=== PATIENT | male | born 1945 | race Caucasian/White ===

== ENCOUNTER 2019-06-25 12:54 | Inpatient (IN) | payer MEDICARE, OTHER ==
--- NOTE | 2019-06-25 15:45 | ED ---
Abdominal Pain/Male - HPI Summary HPI Summary: The patient is a 73 y/o M presenting to [facility] accompanied by with a chief complaint of diffuse abdominal pain and bloating since 06/21/2019. He reports that when his pain initially began, he saw his PCP who diagnosed him with the stomach bug. The following day, the pain mostly resolved but then returned the next day and has been present since. He endorses decreased appetite and an episode of palpitations which have resolved. He denies any nausea, vomiting, diarrhea, hematochezia, myalgia, arthralgia, cough, sore throat, CP, SOB, or urinary symptoms. Last BM was today. Symptoms currently rated 5/10 in severity. No known liver issues except for hepatitis A as a child. Cardiac hx includes murmur and HLD but is otherwise unremarkable. Nonsmoker, rare EtOH, no substance use. Medications reviewed. Allergies noted. - History of Current Complaint Chief Complaint: EDAbdPain Stated Complaint: ABDOMINAL PAIN PER PT Time Seen by Provider: 06/25/19 15:34 Hx Obtained From: Patient Onset/Duration: Gradual Onset, Lasting Days, Still Present Timing: Constant Severity Initially: Mild Severity Currently: Moderate Pain Intensity: 5 Pain Scale Used: 0-10 Numeric Location: Diffuse Radiates: No Character: Other: - bloating Aggravating Factor(s): Nothing Alleviating Factor(s): Nothing Associated Signs And Symptoms: Positive: Decreased Appetite. Negative: Cough, Chest Pain, Blood in Stool, Urinary Symptoms, Nausea, Vomiting, Diarrhea, Other - myalgia, arthralgia, sore throat, SOB - Allergies/Home Medications Allergies/Adverse Reactions: Allergies Allergy/AdvReac Type Severity Reaction Status Date / Time No Known Allergies Allergy Verified 06/25/19 13:02 Home Medications: Home Medications Ascorbic Acid TAB* [Vitamin C TAB*] 1,000 mg PO DAILY 06/25/19 [History Confirmed 06/25/19] Aspirin EC TAB* [Ecotrin EC Low Dose 81 MG*] 81 mg PO DAILY 06/25/19 [History Confirmed 06/25/19] Atorvastatin* [Lipitor*] 10 mg PO DAILY 06/25/19 [History Confirmed 06/25/19] [place]-3 Fatty Acids (Nf) [Fish Oil (NF)] 1,000 mg PO DAILY 06/25/19 [History Confirmed 06/25/19] Tamsulosin CAP* [Flomax CAP*] 0.4 mg PO DAILY 06/25/19 [History Confirmed ] Vitamin B Complex CAP* [B Complex CAP*] 1 cap PO DAILY 06/25/19 [History Confirmed 06/25/19] buPROPion SR TAB* [Wellbutrin SR TAB*] 150 mg PO DAILY 06/25/19 [History Confirmed 06/25/19] clonazePAM TAB(*) [KlonoPIN TAB(*)] 0.5 mg PO DAILY 06/25/19 [History Confirmed 06/25/19] PMH/Surg Hx/FS Hx/Imm Hx Endocrine/Hematology History: Denies: Hx Diabetes Cardiovascular History: Reports: Hx Hypercholesterolemia, Other Cardiovascular Problems/Disorders - murmur Denies: Hx Hypertension Sensory History: Reports: Hx Contacts or Glasses Opthamlomology History: Reports: Hx Contacts or Glasses - Surgical History Surgical History: None Surgery Procedure, Year, and Place: none Infectious Disease History: No Infectious Disease History: Reports: Hx Hepatitis - A as child Denies: Traveled Outside the [place] in Last 30 Days - Family History Known Family History: Negative: Diabetes - Social History Alcohol Use: Rare Hx Substance Use: No Substance Use Type: Reports: None Hx Tobacco Use: No Smoking Status (MU): Never Smoked Tobacco Review of Systems Negative: Fever Negative: Sore Throat Positive: Palpitations - resolved. Negative: Chest Pain Negative: Shortness Of Breath, Cough Positive: Abdominal Pain - diffuse with bloating, Vomiting, Nausea, Other - decreased appetite; Negative: hematochezia. Negative: Diarrhea Positive: no symptoms reported Negative: Arthralgia, Myalgia All Other Systems Reviewed And Are Negative: Yes Physical Exam - Summary Physical Exam Summary: Constitutional: Well-developed, Well-nourished, Alert. (-) Distressed Skin: Warm, Dry HENT: Normocephalic; Atraumatic Eyes: Conjunctiva normal Neck: Musculoskeletal ROM normal neck. (-) JVD, (-) Stridor, (-) Tracheal deviation Cardio: Rhythm regular, rate normal, Heart sounds normal; Intact distal pulses; The pedal pulses are 2+ and symmetric. Radial pulses are 2+ and symmetric. (-) Murmur Pulmonary/Chest wall: Effort normal. (-) Respiratory distress, (-) Wheezes, (-) Rales Abd: Soft, (-) tenderness, (-) Distension, (-) Guarding, (-) Rebound Musculoskeletal: (-) Edema Lymph: (-) Cervical adenopathy Neuro: Alert, Oriented x3 Psych: Mood and affect Normal Triage Information Reviewed: Yes Vital Signs On Initial Exam: Initial Vitals Temp Pulse Resp BP Pulse Ox 98.1 F 100 15 137/96 96 06/25/19 12:58 06/25/19 12:58 06/25/19 12:58 06/25/19 12:58 06/25/19 12:58 Vital Signs Reviewed: Yes Procedures - Sedation Patient Received Moderate/Deep Sedation with Procedure: No Diagnostics - Vital Signs Vital Signs Temp Pulse Resp BP Pulse Ox 06/25/19 12:58 98.1 F 100 15 137/96 96 - Laboratory Result Diagrams: 06/26/19 06:12 06/26/19 06:12 Lab Statement: Any lab studies that have been ordered have been reviewed, and results considered in the medical decision making process. - CT Abd/Pel CT CT Interpretation Completed By: Radiologist Summary of CT Findings: Impression: 1. Distended small bowel, greatest diameter 5.4 cm the left flank. Bowel is uniformly distended down to the level of the distal ileum with distal and terminal ileum collapsed. This can be seen on axial imaging images 36 and contiguous. There is not a visualized obstructing mass or torsion at this level however and there is also moderate gaseous distension of the colon. Suspect this is severe ileus however correlation with bowel sounds is recommended to help exclude obstruction. 2. Minimal free fluid without free air or abscess. 3. Enlarged heterogeneous and nodular appearing prostate. Question of extrinsic mass effect on the bladder base versus tumor at the bladder base. This imaging report was reviewed by Dr. Pascual. Re-Evaluation - Re-Evaluation [id number] Re-Evaluation Time: 18:50 Comment: Discussed results and plan for admission, patient agreeable Abdominal Pain Male Course/Dx - Course Course Of Treatment: 73 y/o M presenting with worsening diffuse abdominal pain and bloating for the last five days with decreased appetite but o/w asymptomatic for N/V/D, blood in stool, CP, SOB, urinary symptoms. PMHx: hepatitis A as child, heart murmur, HLD. Physical exam reveals distended and firm abdomen with generalized tenderness. IV access obtained. Patient received fluids. Blood work without significant abnormality except for chloride of 99, glucose of 130. Abd/Pel CT reveals distended small bowel without obstructing mass or torsion, although moderate gaseous colonic distension present with suspected severe ileus, minimal free fluid without free air or abscess, and enlarged heterogeneous and nodular appearing prostate with questionable extrinsic mass effect on the bladder base versus tumor at the bladder base. Dr. Collins from the hospitalist services accepts the patient for admission. All results discussed. Patient agreeable with plan. - Diagnoses Provider Diagnoses: Ileus - Provider Notifications Discussed Care Of Patient With: Deepak Collins - hospitalist Time Discussed With Above Provider: 19:15 Instructed by Provider To: Other - I discussed the patients case with Dr. Collins, who accepts the patient for admission. All results discussed. Patient agreeable with plan. Discharge ED - Sign-Out/Discharge Documenting (check all that apply): Patient Departure - Patient accepted for admissino. - Discharge Plan Condition: Stable Disposition: ADMITTED TO [facility] - Billing Disposition and Condition Condition: STABLE Disposition: Admitted to [facility] - Attestation Statements Document Initiated by Gabby: Yes Documenting Scribe: Yolanda Jacobs Provider For Whom Gabby is Documenting (Include Credential): Dr. Gregorio Pascual DO Scribe Attestation: Yolanda Chaidez scribed for Dr. Gregorio Pascual DO on 06/26/19 at 1024. Scribe Documentation Reviewed: Yes Provider Attestation: The documentation as recorded by the Yolanda larsen accurately reflects the service I personally performed and the decisions made by me, Dr. Gregorio Pascual DO Status of Scranyi Document: Viewed
[2019-06-25] MEDS ORDERED: NS 0.9% 1000 ML** 1,000 ML IV ONE (15:56)
[2019-06-25 16:26] LABS: Albumin 4.4 g/dL (3.2-5.2); Albumin/Globulin Ratio 1.5 (1-3); BUN/Creatinine Ratio 18.4 (8-20); EGFR African American 91.2 (>60); EGFR Non-African American 75.4 (>60); Total Bilirubin 0.9 mg/dL (0.2-1.0); Total Protein 7.4 g/dL (6.4-8.9)
[2019-06-25 16:51] LABS: Eosinophil % 0.3 %; Hematocrit 47 % (42-52); Lymphocyte % 12.4 %; Mean Corpuscular HGB Conc 34 g/dL (31-36); Mean Corpuscular Hemoglobin 31 pg (27-31); Mean Corpuscular Volume 92 fL (80-94); Mean Platelet Volume 9.1 fL (7.4-10.4); Platelet Count 208 10^3/uL (150-450); Red Cell Distribution Width 14 % (10-15); White Blood Count 8.1 10^3/uL (3.5-10.8)
[2019-06-25] MEDS ORDERED: Iohexol 300* (CONTRAST) 10 ML SDV IV ONE (17:12)
[2019-06-25] MEDS ORDERED: oxyCODONE/Acetamin 5/325 MG* TAB PO PRN (20:08)
[2019-06-25] MEDS ORDERED: Lidocaine 2% VISCOUS* 15 ML UDC PO ONE (20:28)
[2019-06-25] MEDS ORDERED: Ondansetron INJ* 2 MG/ML VIAL IV PRN (20:54)
[2019-06-25] MEDS: Enoxaparin(*) 40 MG/0.4 ML SYR SUBCUT SCH (23:09)
[2019-06-25] MEDS: Pantoprazole IV* 40 MG IV SCH (23:09)
[2019-06-25] MEDS: NS 0.9% 1000 ML** 1,000 ML IV SCH (23:09)
--- NOTE | 2019-06-26 00:53 | HP ---
History of Present Illness - History of Present Illness Reason for Visit: Abdominal pain/Distension History of Present Illness: 73 yo Male with PMHx significant for Anxiety/Depression, HLD presented to the ED and accompanied with with CC of abdominal pain and distention/bloating X 4 days. Patient was in his present state of good health until 4 days ago when he developed diffuse abdominal pain associated with bloating. He thought it was gas pain and took some antacid without much relief. He went to his PCP who mad a diagnosis of stomach flu. There is associated nausea and dry heave but no vomiting. Pain is diffuse and non colicky. Initially responded to antacid but now noticed increased distention/swelling which made him not to eat. he reported passing gas but this has decreased rather there is increased belching. He denied fever, chest pain, diarrhea, hematochezia. Last BM was today but it was little and non bloody, non mucoid. He admitted remote inguinal hernia repair about 30 years ago. 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 Alcohol: Rare Drugs: None Lives: With Family Domestic Violence: Negative Review of Systems - Measurements Intake and Output: Intake and Output Last 24 Hours 06/23/19 06/24/19 06/25/19 06/26/19 06:59 06:59 06:59 06:59 Intake Total 1000 Balance 1000 Weight 95.254 kg Intake: IV Fluids 1000 - Review of Systems Constitutional Symptoms: Positive: Weakness, Fatigue Negative: Fever, Night Sweats Dermatology: Positive: Normal HEENT: Positive: Normal Eyes: Positive: Normal Thyroid: Positive: Normal Pulmonary: Positive: Normal Cardiology: Positive: Normal Gastroenterology: Positive: Abdominal Pain, Nausea, Anorexia Negative: Diarrhea, Change in Bowel Habits, Haematemesis Genital - Urinary: Positive: Normal Musculoskeletal: Negative: Arthritis, Osteoporosis Endocrinology: Negative: Thyroid Problems, Adrenal Problems, Diabetes Mellitus, Hyperglycemia Hematologic/Lymphatic: Negative: Anemia, Easy Bruising, Use of Anticoagulant Neurology: Positive: Headache Negative: Diplopia, Dizziness Psychiatry: Negative: Anxiety, Depressed Mood Objective Active Medications: Enoxaparin Sodium (Lovenox(*)) 40 mg SUBCUT Q24H [facility] Last Admin: 06/25/19 23:09 Dose: 40 mg Sodium Chloride (Ns 0.9% 1000 Ml) 1,000 mls @ 125 mls/hr IV PER RATE [facility] Last Admin: 06/25/19 23:09 Dose: 125 mls/hr Ondansetron HCl (Zofran Inj*) 4 mg IV Q4H PRN PRN Reason: NAUSEA/VOMITING Oxycodone/Acetaminophen (Percocet 5/325 Tab*) 1 tab PO Q4H PRN PRN Reason: PAIN - MODERATE Pantoprazole Sodium (Protonix Iv*) 40 mg IV Q24H [facility] Last Admin: 06/25/19 23:09 Dose: 40 mg Vital Signs - 8 hr 06/25/19 06/25/19 06/25/19 16:52 17:01 17:52 Temperature Pulse Rate 73 66 68 Respiratory Rate Blood Pressure 163/107 153/97 (mmHg) O2 Sat by Pulse 95 97 96 Oximetry 06/25/19 06/25/19 06/25/19 18:00 18:22 18:52 Temperature Pulse Rate 70 78 82 Respiratory Rate Blood Pressure 179/100 144/98 (mmHg) O2 Sat by Pulse 97 95 97 Oximetry 06/25/19 06/25/19 06/25/19 19:00 19:22 19:52 Temperature Pulse Rate 80 80 87 Respiratory Rate Blood Pressure 154/96 156/102 (mmHg) O2 Sat by Pulse 95 94 94 Oximetry 06/25/19 06/25/19 06/25/19 20:00 20:15 20:22 Temperature Pulse Rate 89 92 98 Respiratory Rate Blood Pressure 156/102 159/126 (mmHg) O2 Sat by Pulse 96 96 95 Oximetry 06/25/19 06/25/19 06/25/19 20:48 20:52 21:00 Temperature Pulse Rate 94 92 88 Respiratory Rate Blood Pressure 118/94 124/90 (mmHg) O2 Sat by Pulse 96 96 93 Oximetry 06/25/19 06/25/19 06/25/19 21:22 21:52 22:00 Temperature Pulse Rate 88 88 89 Respiratory Rate Blood Pressure 121/79 122/87 (mmHg) O2 Sat by Pulse 95 94 93 Oximetry 06/25/19 06/25/19 06/25/19 22:22 22:49 22:55 Temperature 97.9 F 97.8 F Pulse Rate 84 86 89 Respiratory 18 14 Rate Blood Pressure 136/102 136/102 131/89 (mmHg) O2 Sat by Pulse 93 98 96 Oximetry Oxygen Devices in Use Now: None Appearance: Alert, awake and in mild distress. (Abdominal distention) Eyes: No Scleral Icterus Ears/Nose/Mouth/Throat: Clear Oropharnyx Neck: NL Appearance and Movements; NL JVP, Trachea Midline, No Thyroid Enlargement, Masses Respiratory: Symmetrical Chest Expansion and Respiratory Effort, Clear to Auscultation Cardiovascular: NL Sounds; No Murmurs; No JVD, RRR, No Edema Abdominal: No Hepatosplenomegaly, - - Positive bowel sounds all 4 quadrants. Abdominal distension, mildly tender on palpation. Lymphatic: No Cervical Adenopathy Extremities: No Edema, No Clubbing, Cyanosis Skin: No Rash or Ulcers Neurological: Alert and Oriented x 3, NL Muscle Strength and Tone Result Diagrams: 06/25/19 16:02 06/25/19 16:02 Diagnostic Imaging: CT Abdomen: 1 Distended small bowel, greatest diameter 5.4 cm the left flank. Bowel uniformly distended down to the level of the distal ileum with distal and terminal ileum collapsed. There is not a visualized obstructing mass or torsion at this level however and there is also moderate gaseous distension of the colon. Suspect this is severe ileus however correlation with bowel sounds is recommended to help exclude obstruction. 2. Minimal free fluid without free air or abscess. 3. Enlarged heterogeneous and nodular appearing prostate. Question of extrensic mass effect on the bladder base versus tumor at the bladder base. Assess/Plan/Problems-Billing Assessment: 73 yo Male with PMHx significant for Anxiety/Depression, HLD presented with: - Patient Problems (1) Abdominal pain Current Visit: Yes Status: Acute Code(s): R10.9 - UNSPECIFIED ABDOMINAL PAIN SNOMED Code(s): 84880606 Comment: Admit to medicine Pain control Zofran for nausea/vomiting as needed (2) Adynamic ileus Current Visit: Yes Status: Acute Code(s): K56.0 - PARALYTIC ILEUS SNOMED Code(s): 39011300 Comment: Distension probabaly due to ileus. NPO for now to allow for bowel rest. NGT decompression Pain control (3) Dehydration Current Visit: Yes Status: Acute Code(s): E86.0 - DEHYDRATION SNOMED Code( s): 01043113 Comment: IVF NS hydration FU AM labs (4) Anxiety and depression Current Visit: Yes Status: Acute Code(s): F41.9 - ANXIETY DISORDER, UNSPECIFIED; F32.9 - MAJOR DEPRESSIVE DISORDER, SINGLE EPISODE, UNSPECIFIED SNOMED Code(s): 145319775 Comment: c/w home meds. Wellbutrin XR 150 mg daily Klonopin prn (5) HLD (hyperlipidemia) Current Visit: Yes Status: Acute Code(s): E78.5 - HYPERLIPIDEMIA, UNSPECIFIED SNOMED Code(s): 75090222 Comment: Continue Lipitor (6) BPH (benign prostatic hyperplasia) Current Visit: Yes Status: Acute Code(s): N40.0 - BENIGN PROSTATIC HYPERPLASIA WITHOUT LOWER URINRY TRACT SYMP SNOMED Code(s): 441969618 Comment: Continue Flomax 0.4 mg daily (7) Full code status Current Visit: Yes Status: Acute Code(s): Z78.9 - OTHER SPECIFIED HEALTH STATUS SNOMED Code(s): 486845530 (8) DVT prophylaxis Current Visit: Yes Status: Acute Code(s): Z29.9 - ENCOUNTER FOR PROPHYLACTIC MEASURES, UNSPECIFIED SNOMED Code(s): 766094796 Comment: Lovenox
[2019-06-26] MEDS: NS 0.9% 1000 ML** 1,000 ML IV SCH ×3 (05:33→22:31)
[2019-06-26 06:36] LABS: ABS Eosinophils 0.1 10^3/ul (0-0.6); ABS Lymphocytes 0.8 10^3/ul (1.0-4.8); ABS Monocytes 0.8 10^3/ul (0-0.8); ABS Neutrophils 4.7 10^3/ul (1.5-7.7); Eosinophil % 1.2 %; Hematocrit 39 % (42-52); Hemoglobin 13.6 g/dL (14.0-18.0); Lymphocyte % 13.3 %; Mean Corpuscular HGB Conc 35 g/dL (31-36); Mean Corpuscular Hemoglobin 32 pg (27-31); Mean Corpuscular Volume 92 fL (80-94); Mean Platelet Volume 8.7 fL (7.4-10.4); Platelet Count 170 10^3/uL (150-450); Red Blood Count 4.29 10^6 /uL (4.18-5.48); Red Cell Distribution Width 14 % (10-15); White Blood Count 6.4 10^3/uL (3.5-10.8)
[2019-06-26 06:39] LABS: INR 1.16 (0.82-1.09)
[2019-06-26 06:50] LABS: BUN/Creatinine Ratio 17.8 (8-20); Calcium 8.1 mg/dL (8.6-10.3); EGFR African American 82.4 (>60); EGFR Non-African American 68.1 (>60); HDL Cholesterol 31.2 mg/dL; Potassium 3.6 mmol/L (3.5-5.0)
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
[2019-06-26] MEDS ORDERED: Morphine INJ* 2 MG/ML 1 ML SYRINGE (TWO MG - NEW SYRINGE VERSION) IV PRN (10:30)
[2019-06-26] MEDS ORDERED: Ketorolac INJ* 15 MG/ML 1 ML VIAL IV PUSH ONE (17:11)
[2019-06-26] MEDS: Enoxaparin(*) 40 MG/0.4 ML SYR SUBCUT SCH (21:12)
[2019-06-26] MEDS: Pantoprazole IV* 40 MG IV SCH (21:12)
[2019-06-27] MEDS: NS 0.9% 1000 ML** 1,000 ML IV SCH ×2 (07:18→21:10)
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
[2019-06-27] MEDS: Enoxaparin(*) 40 MG/0.4 ML SYR SUBCUT SCH (21:04)
[2019-06-27] MEDS: Pantoprazole IV* 40 MG IV SCH (21:04)
[2019-06-28 05:42] LABS: ABS Eosinophils 0.1 10^3/ul (0-0.6); ABS Lymphocytes 0.8 10^3/ul (1.0-4.8); ABS Monocytes 0.8 10^3/ul (0-0.8); ABS Neutrophils 5.8 10^3/ul (1.5-7.7); Eosinophil % 1.3 %; Hematocrit 39 % (42-52); Hemoglobin 13.4 g/dL (14.0-18.0); Lymphocyte % 10.5 %; Mean Corpuscular HGB Conc 34 g/dL (31-36); Mean Corpuscular Hemoglobin 31 pg (27-31); Mean Corpuscular Volume 91 fL (80-94); Mean Platelet Volume 8.7 fL (7.4-10.4); Platelet Count 172 10^3/uL (150-450); Red Cell Distribution Width 13 % (10-15); White Blood Count 7.5 10^3/uL (3.5-10.8)
[2019-06-28 06:01] LABS: Albumin 3.3 g/dL (3.2-5.2); Albumin/Globulin Ratio 1.3 (1-3); BUN/Creatinine Ratio 21.2 (8-20); Calcium 7.9 mg/dL (8.6-10.3); EGFR African American 107.5 (>60); EGFR Non-African American 88.9 (>60); Globulin 2.5 g/dL (2-4); Potassium 3.9 mmol/L (3.5-5.0); Total Bilirubin 0.8 mg/dL (0.2-1.0); Total Protein 5.8 g/dL (6.4-8.9)
[2019-06-28] MEDS: NS 0.9% 1000 ML** 1,000 ML IV SCH ×2 (08:03→19:06)
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
[2019-06-28] MEDS ORDERED: Phenol 1.4% Spray* 177 ML BTL MT PRN (08:40)
[2019-06-28] MEDS: Enoxaparin(*) 40 MG/0.4 ML SYR SUBCUT SCH (21:07)
[2019-06-28] MEDS: Pantoprazole IV* 40 MG IV SCH (21:08)
[2019-06-28] MEDS ORDERED: Benzocaine/Menthol LOZ* 1 LOZENGE PO PRN (21:13)
[2019-06-29] MEDS: NS 0.9% 1000 ML** 1,000 ML IV SCH ×2 (03:18→12:00)
[2019-06-29 06:21] LABS: ABS Eosinophils 0.1 10^3/ul (0-0.6); ABS Lymphocytes 0.8 10^3/ul (1.0-4.8); ABS Monocytes 0.8 10^3/ul (0-0.8); ABS Neutrophils 4.4 10^3/ul (1.5-7.7); Eosinophil % 1.1 %; Hematocrit 38 % (42-52); Hemoglobin 12.9 g/dL (14.0-18.0); Mean Corpuscular HGB Conc 34 g/dL (31-36); Mean Corpuscular Hemoglobin 31 pg (27-31); Mean Corpuscular Volume 91 fL (80-94); Mean Platelet Volume 8.9 fL (7.4-10.4); Platelet Count 184 10^3/uL (150-450); Red Blood Count 4.14 10^6 /uL (4.18-5.48); Red Cell Distribution Width 13 % (10-15); White Blood Count 6.1 10^3/uL (3.5-10.8)
[2019-06-29 06:41] LABS: Albumin 3.1 g/dL (3.2-5.2); Albumin/Globulin Ratio 1.3 (1-3); BUN/Creatinine Ratio 14.8 (8-20); Calcium 7.8 mg/dL (8.6-10.3); EGFR African American 113.7 (>60); EGFR Non-African American 93.9 (>60); Globulin 2.4 g/dL (2-4); Potassium 3.9 mmol/L (3.5-5.0); Total Bilirubin 0.6 mg/dL (0.2-1.0); Total Protein 5.5 g/dL (6.4-8.9)
--- NOTE | 2019-06-29 13:26 | PN ---
Subjective Date of Service: 06/29/19 Interval History: Mr. Eng is feeling better today. He denies any abdominal pain, N/V. Has been tolerating clear liquids. He is hoping to have the NG tube removed as his throat is quite sore. No concerns from nursing. Family History: Unchanged from Admission Social History: Unchanged from Admission Past Medical History: Unchanged from Admission Objective Active Medications: Acetaminophen (Tylenol 650 Mg Supp) 650 mg [place] Q6H PRN MILD PAIN or TEMP > 100.4 Enoxaparin Sodium (Lovenox(*)) 40 mg SUBCUT Q24H [facility] Sodium Chloride (Ns 0.9% 1000 Ml) 1,000 mls @ 75 mls/hr IV PER RATE [facility] Morphine Sulfate (Morphine Inj (Syringe))*) 2 mg IV Q4H PRN PAIN - SEVERE Ondansetron HCl (Zofran Inj*) 4 mg IV Q4H PRN NAUSEA/VOMITING Oxycodone/Acetaminophen (Percocet 5/325 Tab*) 1 tab PO Q4H PRN PAIN - MODERATE Pantoprazole Sodium (Protonix Iv*) 40 mg IV Q24H [facility] Phenol/Menthol (Chloroseptic Throat [place]*) 1 spray MT BID PRN SORE THROAT Throat Lozenges (Chloraseptic Belen*) 1 belen PO Q6H PRN SORE THROAT Vital Signs - 8 hr 06/29/19 06/29/19 07:15 08:00 Temperature 98.0 F Pulse Rate 62 Respiratory 15 15 Rate Blood Pressure 147/75 (mmHg) O2 Sat by Pulse 95 Oximetry Oxygen Devices in Use Now: None Appearance: Elderly male lying in bed in NAD Ears/Nose/Mouth/Throat: Mucous Membranes Moist Neck: NL Appearance and Movements; NL JVP, Trachea Midline Respiratory: Symmetrical Chest Expansion and Respiratory Effort, Clear to Auscultation Cardiovascular: NL Sounds; No Murmurs; No JVD, RRR Abdominal: - - Distended, non tender, hypoactive BS x4 Neurological: Alert and Oriented x 3 Lines/Tubes/Other Access: Clean, Dry and Intact Peripheral IV Result Diagrams: 06/29/19 05:47 06/29/19 05:47 Assess/Plan/Problems-Billing Assessment: Mr. Eng is a 73 yo M with PMH of anxiety, depression, HLD; who presented to the ED with c/o abdominal pain and was found to have paralytic ileus. - Patient Problems (1) Paralytic ileus Code(s): K56.0 - PARALYTIC ILEUS Comment: - Presented with abdominal pain - CT on admission showing suspected severe ileus - Unclear etiology - Hypoactive BS and distention on assessment - Patient reports passing gas, having a BM, and lack of abdominal pain or N/V - Tolerating clear liquids - Remove NG tube today - Advance to full liquids (2) Anxiety and depression Code(s): F41.9 - ANXIETY DISORDER, UNSPECIFIED; F32.9 - MAJOR DEPRESSIVE DISORDER, SINGLE EPISODE, UNSPECIFIED Comment: - Hold bupropion and clonazepam until consistently tolerating PO intake (3) BPH (benign prostatic hyperplasia) Code(s): N40.0 - BENIGN PROSTATIC HYPERPLASIA WITHOUT LOWER URINRY TRACT SYMP Comment: - PSA normal - Will need outpatient f/u for CT findings of questionable bladder mass - Hold tamsulosin until consistently tolerating PO intake (4) HLD (hyperlipidemia) Code(s): E78.5 - HYPERLIPIDEMIA, UNSPECIFIED Comment: - Hold atorvastatin until consistently tolerating PO intake (5) DVT prophylaxis Code(s): Z29.9 - ENCOUNTER FOR PROPHYLACTIC MEASURES, UNSPECIFIED Comment: - Lovenox (6) Full code status Code(s): Z78.9 - OTHER SPECIFIED HEALTH STATUS Comment: Status and Disposition: Inpatient. Anticipate d/c home in the next 1-2 days if clinically improving. Attending: Davonte Larios
[2019-06-29] MEDS: Enoxaparin(*) 40 MG/0.4 ML SYR SUBCUT SCH (20:56)
[2019-06-30] MEDS: NS 0.9% 1000 ML** 1,000 ML IV SCH (01:12)
[2019-06-30] MEDS ORDERED: Atorvastatin* 10 MG TAB PO SCH (09:00)
[2019-06-30] MEDS ORDERED: Aspirin EC TAB* 81 MG TAB.EC PO SCH (09:00)
[2019-06-30] MEDS ORDERED: clonazePAM TAB(*) 0.5 MG PO SCH (09:00)
[2019-06-30] MEDS ORDERED: buPROPion SR TAB.SR* 150 MG PO SCH (09:00)
[2019-06-30] MEDS ORDERED: Tamsulosin CAP* 0.4 MG PO SCH (09:00)
[2019-06-30 11:10] VITALS: BP 133/71
--- NOTE | 2019-07-01 01:30 | DS ---
CC: Akua Lane NP * DISCHARGE SUMMARY: DATE OF ADMISSION: 06/25/19 DATE OF DISCHARGE: 06/30/19 PRIMARY CARE PROVIDER: Akua Lane NP. MY ATTENDING WHILE IN THE HOSPITAL: Dr. Davonte Larios.* (DICTATED BY MILDRED HAGAN) PRIMARY DISCHARGE DIAGNOSIS: Ileus, unclear cause. SECONDARY DISCHARGE DIAGNOSES: 1. Anxiety. 2. Depression. 3. Hyperlipidemia. STUDIES DONE WHILE IN THE HOSPITAL: Abdomen and pelvis CT from 06/25/19 read as distended small bowel, greatest diameter 5.4 cm, left flank; bowel is down to the level of the distal ileum with distal terminal ileum collapsed, can be seen on axial images 36 and contiguous. There is not visualized obstructing mass or torsion at this level; however, there is also moderate gaseous distention of the colon despite the severe ileus. However correlation with bowel sounds is recommended to help exclude obstruction, minimal free fluid without free air or abscess. Large heterogenous and nodular appearing prostate , question extruding mass effect from the bladder versus tumor at the bladder base. Chest x-ray read as dilated loops of small bowel. No active cardiopulmonary disease. MEDICATIONS AT DISCHARGE: 1. Clonazepam 0.5 mg p.o. daily. 2. Bupropion 150 mg p.o. daily. 3. Atorvastatin 10 mg p.o. daily. 4. Aspirin 81 mg p.o. daily. 5. Vitamin B complex 1 cap p.o. daily. 6. Tamsulosin 0.4 mg p.o. daily. 7. Ascorbic acid 1000 mg p.o. daily. 8. Dunlap-3 fatty acid 1000 mg p.o. daily. New medications at discharge: None. Medications discontinued at discharge: None. HOSPITAL COURSE: This is a brief summary of the patient's presentation. For more details, please see history and physical from Dr. Deepak Collins on . In brief, the patient is a 73-year-old male with past medical history significant for the above, who 4 days prior to this admission developed abdominal pain, gaseous distention, and bloating. There were no obvious factors, no changes in his medications. He was initially diagnosed with a stomach flu and denied diarrhea or other associated symptoms. The patient came to the emergency department due to nonresolution of his symptoms. The patient on admission had relatively normal lab work. The patient had an NG tube placed for comfort related to his nausea and vomiting. His symptoms did begin to improve slowly. The patient's symptoms improved progressively from 06/25/19 to 06/29/19, at which time his NG tube was able to be removed as he was passing flatus, having bowel movements and tolerating some liquids. The patient did not receive any opiates while in the hospital for his pain. The patient received IV fluids. On 06/30/19, the patient was able to tolerate breakfast and lunch without issue, continue to pass stool and was stable, amenable for discharge to home. PHYSICAL EXAMINATION ON DISCHARGE: General: The patient is a 73-year-old male who appears stated age, sitting comfortably in bed, in no acute distress. Vital Signs: At the time of evaluation, temperature 98.5, pulse rate 80, respiratory rate 18, oxygen saturation 97% on room air, blood pressure 133/71. HEENT: Normocephalic, atraumatic. Sclerae anicteric. No conjunctival injection. Nasal mucosa moist. Oral mucosa moist. No oropharyngeal erythema, discharge, or exudate. Neck: Supple, nontender. No lymphadenopathy. No carotid bruits auscultated. No JVD. Cardiac: Regular rate and rhythm. No clicks, murmurs, gallops, or rubs. Pulses are 2+ in the dorsalis pedis, posterior tibialis, and radial areas. Respiratory: Clear to auscultation bilaterally. No wheezes, rales, or rhonchi. Good air exchange bilaterally. Abdomen: Soft, nontender, nondistended. Bowel sounds present and normoactive in all 4 quadrants. No hepatosplenomegaly. No abdominal bruits auscultated. No hepatojugular reflux. Genitourinary: No suprapubic or CVA tenderness. Skin : Clean, dry, and intact. No rash. Neuro: Cranial nerves II through XII intact. No focal deficits. Alert and oriented x3. Psychiatric: Pleasant and cooperative. DISCHARGE PLAN BY PROBLEM: 1. Adynamic ileus, unclear cause. The patient had no obvious obstruction. No obvious transition point on his CT. The patient has no reported history of intraabdominal surgery and the ileus at this point remains of unclear cause, so its chance of recurrence is unable to be estimated; however, the patient has no symptoms now, was able to tolerate adequate amount by mouth. The patient should follow up with primary care provider within 1 week for general medical management. He should return to the hospital for recurrent symptoms wherein he is unable to take in adequate oral intake by mouth. 2. Bladder mass. The patient had incidentally found bladder mass on his CT. The patient had a negative PSA. The patient has been instructed to follow up with urologist about this, though this could all be related to age related BPH. The patient lacks lower urinary tract symptoms. Continue patient's Flomax. 3. Anxiety and depression. Continue patient's bupropion and clonazepam. DISPOSITION: Home. CONDITION: Stable. TIME SPENT: Approximately 60 minutes was spent on this discharge, greater than 30 of which was spent [id number] with the patient obtaining history and physical and discussing treatment plan. MILDRED HAGAN [id number]/[place] #: [id number] CHRISTO
== END 2019-06-30 15:15 | disposition home or self-care (01) | DRG 390 ==
LOC: ED 12:54 → MED 20:08
PROVIDERS: ADMIT Family Medicine; ATTEND Internal Medicine
DX: K56.0 Paralytic ileus (principal); E78.5 Hyperlipidemia, unspecified; F32.9 Major depressive disorder, single episode, unspecified; E86.0 Dehydration; F41.9 Anxiety disorder, unspecified; N40.0 Benign prostatic hyperplasia without lower urinary tract symptoms; R51 Headache; N32.9 Bladder disorder, unspecified; Z82.49 Family history of ischemic heart disease and other diseases of the circulatory system; Z80.49 Family history of malignant neoplasm of other genital organs; Z79.899 Other long term (current) drug therapy; Z87.81 Personal history of (healed) traumatic fracture
CPT/HCPCS: 36415; 71045; 74177; 80048; 80053; 80061; 83605; 83690; 84153; 85025; 85610; 99284; A9270-GY; G0103; J1650; J1885; Q9967